=== PATIENT | female | born 1965 | race Caucasian/White ===

== ENCOUNTER 2024-06-02 15:10 | Inpatient (IN) | payer OTHER ==
[~2024-06-02] VITALS: Ht 154.9 cm; Wt 73.9 kg
[2024-06-02 15:31] VITALS: BP 128/71; PULSE 111; RESP 18; TEMP 97.6; O2SAT 98
[2024-06-02] MEDS ORDERED: MORPHINE SULFATE 2 MG/ML SYR IVP PRN (16:05)
[2024-06-02] MEDS ORDERED: INSULIN LISPRO SLIDING SCALE 100 UNITS/ML VIAL SUBQ PRN (16:05)
[2024-06-02] MEDS: NACL 0.9% 1,000 ML IV SCH ×2 (16:05→17:03)
[2024-06-02] MEDS ORDERED: VANCOMYCIN PER PHARMACY MC PRN ×2 (16:05→20:00)
[2024-06-02] MEDS ORDERED: DEXTROSE 50% 50 ML SYR IVP PRN (16:05)
[2024-06-02] MEDS ORDERED: HYDROcodone/APAP 5/325 MG 1 TAB TAB PO PRN (16:05)
[2024-06-02 16:11] LABS: BASOPHILS # (AUTO) 0.1 K/uL (0.00-0.22); BASOPHILS % (AUTO) 1.3 % (0.0-2.0); EOSINOPHILS # (AUTO) 0.2 K/uL (0-0.4); EOSINOPHILS % (AUTO) 2.2 % (0.0-4.0); HEMATOCRIT 43.3 % (36-48); HEMOGLOBIN 14.3 g/dL (12.0-16.0); LYMPHOCYTES # (AUTO) 2.2 K/uL (2.5-16.5); LYMPHOCYTES % (AUTO) 28.9 % (20.5-51.1); MEAN CORPUSCULAR HEMOGLOBIN 31 pg (27-31); MEAN CORPUSCULAR HGB CONC 33 g/dL (33-37); MEAN CORPUSCULAR VOLUME 92.1 fL (80-94); MONOCYTES # (AUTO) 0.5 K/uL (0.8-1.0); MONOCYTES % (AUTO) 6.6 % (1.7-9.3); NEUTROPHILS # (AUTO) 4.6 K/uL (1.8-7.7); PLATELET COUNT (AUTO) 419 K/uL (140-450); RED CELL DISTRIBUTION WIDTH 13.7 % (11.6-13.7); WHITE BLOOD COUNT (AUTO) 7.6 K/uL (4.8-10.8)
[2024-06-02 16:20] LABS: ANION GAP 14.9 (8-16); CALCIUM 9.4 mg/dL (8.5-10.1); CARBON DIOXIDE 23.8 mmol/L (21-32); CREATININE 0.8 mg/dL (0.6-1.3); POTASSIUM 3.7 mmol/L (3.5-5.1)
[2024-06-02] MEDS ORDERED: VANCOMYCIN 1,000 MG VIAL ONE (16:21)
[2024-06-02 16:29] LABS: ALANINE AMINOTRANSFERASE 27 U/L (12-78); ALBUMIN 3.2 g/dL (3.4-5.0); ALKALINE PHOSPHATASE 92 U/L (50-136); ASPARTATE AMINOTRANSFERASE 16 U/L (15-37); BILIRUBIN,DIRECT 0.1 mg/dL (0.0-0.3); TOTAL BILIRUBIN 0.3 mg/dL (0.0-1.0); TOTAL PROTEIN, SERUM 7.9 g/dL (6.4-8.2)
[2024-06-02] MEDS: BLOOD GLUCOSE MONITORING 1 DEV DEV FS SCH (16:30)
[2024-06-02] MEDS: VANCOMYCIN 1,000 MG in DEXTROSE 5% 250 ML IV ONE (17:03)
[2024-06-02] MEDS: MORPHINE SULFATE 4 MG/ML SYR IVP ONE (17:04)
[2024-06-02] MEDS: ONDANSETRON 4 MG/2 ML VIAL IVP PRN (17:05)
[2024-06-02] MEDS ORDERED: METF-1139 PO (17:14)
[2024-06-02] MEDS ORDERED: LISI-953 PO (17:14)
[2024-06-02] MEDS ORDERED: SEVOFLURANE 250 ML BTL INH ONE (18:30)
[2024-06-02] MEDS ORDERED: METOCLOPRAMIDE 10 MG/2 ML INJ VIAL ONE (18:30)
[2024-06-02] MEDS ORDERED: ePHEDrine 50 MG/ML VIAL ONE (18:30)
[2024-06-02] MEDS ORDERED: ONDANSETRON 4 MG/2 ML VIAL ONE (18:30)
[2024-06-02] MEDS: PROPOFOL 200 MG/20 ML VIAL IV ONE (18:35)
[2024-06-02] MEDS: SUCCINYLCHOLINE CHLORIDE 200 MG/10 ML VIAL IVP ONE (18:35)
[2024-06-02] MEDS: HYDROmorphone PFS 2 MG/ML SYR ONE (18:35)
[2024-06-02] MEDS: ROCURONIUM 50 MG/5 ML VIAL IV ONE (18:35)
[2024-06-02] MEDS: HYDROGEN PEROXIDE 3% 240 ML BTL TP ONE (18:52)
[2024-06-02] MEDS ORDERED: LEVOFLOXACIN 750 MG/D5W PREMIX 150 ML IV SCH (19:00)
[2024-06-02] MEDS: GLYCOPYRROLATE 0.2 MG/ML VIAL ONE ×2 (19:24)
[2024-06-02] MEDS: NEOSTIGMINE 1:1000 10 MG/10 ML VIAL ONE (19:24)
[2024-06-02] MEDS: LIDOCAINE/EPI 1% 1:100000 20 ML VIAL INJ ONE (19:30)
[2024-06-02] MEDS: LACTATED RINGERS 1,000 ML IV SCH (19:30)
[2024-06-02] MEDS: BUPIVACAINE-MPF 0.25% 30 ML VIAL INJ ONE (19:30)
[2024-06-02] MEDS ORDERED: MEPERIDINE 25 MG/ML SYR IVP PRN (19:30)
[2024-06-02] MEDS ORDERED: ONDANSETRON 4 MG/2 ML VIAL IVP PRN (19:30)
[2024-06-02] MEDS ORDERED: HYDROmorphone 1 MG/ML AMP IVP PRN (19:30)
[2024-06-02] MEDS: KETOROLAC 30 MG/ML VIAL ONE (19:37)
[2024-06-02] MEDS: VANCOMYCIN 1,000 MG VIAL ONE (19:45)
[2024-06-02] MEDS ORDERED: MORPHINE SULFATE 4 MG/ML SYR IV PRN (20:00)
[2024-06-02] MEDS ORDERED: LEVOFLOXACIN 500 MG/D5W PREMIX 100 ML IV ONE (20:00)
[2024-06-02 20:50] VITALS: PULSE 88; RESP 18; O2SAT 96
[2024-06-02] MEDS: LEVOFLOXACIN 750 MG/D5W PREMIX 150 ML IV SCH (22:49)
[2024-06-02] MEDS: DEXT 5% /NACL 0.9% 1,000 ML IV SCH (22:51)
[2024-06-03] MEDS: ONDANSETRON 4 MG/2 ML VIAL IV PRN (00:28)
[2024-06-03 04:00] VITALS: BP 107/54; PULSE 75; RESP 18; TEMP 97.4; O2SAT 95
[2024-06-03 05:28] LABS: BASOPHILS % (AUTO) 0.3 % (0.0-2.0); EOSINOPHILS # (AUTO) 0.1 K/uL (0-0.4); HEMATOCRIT 35.4 % (36-48); HEMOGLOBIN 11.6 g/dL (12.0-16.0); LYMPHOCYTES # (AUTO) 1.4 K/uL (2.5-16.5); LYMPHOCYTES % (AUTO) 17.8 % (20.5-51.1); MEAN CORPUSCULAR HEMOGLOBIN 31 pg (27-31); MEAN CORPUSCULAR HGB CONC 33 g/dL (33-37); MEAN CORPUSCULAR VOLUME 93.2 fL (80-94); MONOCYTES # (AUTO) 0.4 K/uL (0.8-1.0); MONOCYTES % (AUTO) 5.9 % (1.7-9.3); NEUTROPHILS # (AUTO) 5.7 K/uL (1.8-7.7); PLATELET COUNT (AUTO) 324 K/uL (140-450); RED BLOOD CELL COUNT(AUTO) 3.79 MIL/uL (4.20-5.40); RED CELL DISTRIBUTION WIDTH 13.7 % (11.6-13.7); WHITE BLOOD COUNT (AUTO) 7.6 K/uL (4.8-10.8)
[2024-06-03 05:34] LABS: ALBUMIN 2.5 g/dL (3.4-5.0); ANION GAP 10.1 (8-16); CALCIUM 8.7 mg/dL (8.5-10.1); CREATININE 0.8 mg/dL (0.6-1.3); MAGNESIUM 1.7 mg/dL (1.8-2.4); POTASSIUM 4.1 mmol/L (3.5-5.1); TOTAL BILIRUBIN 0.3 mg/dL (0.0-1.0); TOTAL PROTEIN, SERUM 6.2 g/dL (6.4-8.2)
[2024-06-03] MEDS: ACETAMINOPHEN 325 MG TAB PO PRN (05:44)
[2024-06-03] MEDS: VANCOMYCIN HCL 750 MG in DEXTROSE 5% 250 ML IV SCH (05:51)
[2024-06-03] MEDS: VANCOMYCIN 1,000 MG VIAL ONE (05:56)
[2024-06-03 08:00] VITALS: BP 130/62; PULSE 87; RESP 18; TEMP 98.4; O2SAT 99
[2024-06-03] MEDS: HYDROmorphone 1 MG/ML AMP IVP PRN (08:35)
[2024-06-03] MEDS: ENOXAPARIN 40 MG/0.4 ML SYR SUBQ SCH (08:41)
[2024-06-03] MEDS: MAG SULF 2000 MG/WATER PREMIX 50 ML IV SCH (09:45)
[2024-06-03 12:00] VITALS: BP 130/62; PULSE 87; RESP 18; TEMP 98.4; O2SAT 99
[2024-06-03] MEDS ORDERED: SULF-59 PO (15:55)
[2024-06-03] MEDS ORDERED: LEVO750T75 PO (15:55)
[2024-06-03 16:00] VITALS: BP 141/60; PULSE 65; RESP 18; TEMP 97.9; O2SAT 93
[2024-06-03 17:31] VITALS: BP 141/60; PULSE 65; RESP 18; TEMP 97.9
[2024-06-03] MEDS ORDERED: MEDS-TO-BEDS MC SCH (21:00)
== END 2024-06-03 19:25 | disposition home or self-care (01) | DRG 721 ==
LOC: MED 15:10 → MTU 16:05
PROVIDERS: ADMIT Hospitalist; ATTEND Hospitalist
PROC: 0J9800Z Drainage of Abdomen Subcutaneous Tissue and Fascia with Drainage Device, Open Approach (ICD-10-PCS; principal; 2024-06-02 18:00)
DX: T81.41XA Infection following a procedure, superficial incisional surgical site, initial encounter (principal); E44.0 Moderate protein-calorie malnutrition; L02.211 Cutaneous abscess of abdominal wall; E87.1 Hypo-osmolality and hyponatremia; R71.0 Precipitous drop in hematocrit; L03.311 Cellulitis of abdominal wall; E11.9 Type 2 diabetes mellitus without complications; I10 Essential (primary) hypertension; E83.42 Hypomagnesemia; Y83.8 Other surgical procedures as the cause of abnormal reaction of the patient, or of later complication, without mention of misadventure at the time of the procedure; Y92.89 Other specified places as the place of occurrence of the external cause; Z88.0 Allergy status to penicillin; Z68.30 Body mass index [BMI] 30.0-30.9, adult
CPT/HCPCS: 36415; 71045; 80048; 80053; 80076; 82948; 83605; 83735; 83880; 84484; 85025; 87040; 87070; 87075; 87081; 87205; 93005; 96365; 96366; 96375; 99285; J0330; J1170; J1650; J1815; J1885; J1956; J2001; J2270; J2405; J2704; J2710; J2765; J3370; J3475; J3490; J7060; J7120; Q0092